=== PATIENT | female | born 1975 | race Caucasian/White ===

== ENCOUNTER 2018-03-08 10:19 | Emergency (ER) | payer BC, MEDICAID ==
[2018-03-08] MEDS ORDERED: NAPROXEN 250 MG TABLET PO ONE (10:39)
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
[2018-03-08] MEDS ORDERED: LORAZEPAM 0.5 MG TABLET PO ONE ×2 (11:02→11:05)
== END 2018-03-08 11:17 | disposition home or self-care (01) ==
LOC: ER 10:19
DX: M26.69 Other specified disorders of temporomandibular joint (principal); H92.02 Otalgia, left ear; R00.0 Tachycardia, unspecified; F41.9 Anxiety disorder, unspecified; Z87.891 Personal history of nicotine dependence
CPT/HCPCS: 87880; 99283